=== PATIENT | male | born 1955 | race African-American/Black ===

== ENCOUNTER 2017-09-18 09:23 | Observation (INO) | payer OTHER ==
[2017-09-18] MEDS ORDERED: NITROGLYCERIN (SL) 0.4 MG TAB SL ×2 (10:00→14:30)
[2017-09-18 10:18] LABS: ADD MAN DIFF? NO
[2017-09-18 10:23] LABS: WHITE BLOOD COUNT 8.4 10^3/ul (4.8-10.8)
[2017-09-18 10:23] LABS: BASOPHILS % 0.4 % (0.0-2.0); EOSINOPHILS # 0.2 10^3/ul (0.0-0.5); EOSINOPHILS % 2.2 % (0.0-7.0); HEMATOCRIT 47.6 % (42.0-52.0); HEMOGLOBIN 16.3 g/dl (14.0-18.0); IMMATURE GRANS #M 0.02 10^3/ul; IMMATURE GRANS % (M) 0.2 %; LYMPHOCYTES # 2.7 10^3/ul (0.8-2.9); LYMPHOCYTES % 31.8 % (15.0-51.0); MEAN CORPUSCULAR HEMOGLOBIN 31.4 pg (29.0-33.0); MEAN CORPUSCULAR HGB CONC 34.2 g/dl (32.0-37.0); MEAN CORPUSCULAR VOLUME 91.7 fl (82.0-101.0); MEAN PLATELET VOLUME 9.9 fl (7.4-10.4); MONOCYTE # 0.7 10^3/ul (0.3-0.9); MONOCYTES % 8.5 % (0.0-11.0); NEUTROPHIL # 4.8 10^3/ul (1.6-7.5); NEUTROPHILS % 56.9 % (39.0-77.0); PLATELET COUNT 300 10^3/UL (140-415); RED BLOOD COUNT 5.19 10^6/ul (4.70-6.10); RED CELL DISTRIBUTION WIDTH 13.2 % (11.5-14.5)
[2017-09-18] MEDS: NITROGLYCERIN 2% 1 GM OINT PKT TD (10:32)
[2017-09-18 10:44] LABS: ALANINE AMINOTRANSFERASE 36 IU/L (13-69); ALBUMIN 4.1 g/dl (3.3-4.9); ALKALINE PHOSPHATASE 86 IU/L (42-121); ASPARTATE AMINO TRANSFERASE 30 IU/L (15-46); BILIRUBIN,INDIRECT 0.6 mg/dl (0-1.1); BILIRUBIN,TOTAL 0.6 mg/dl (0.2-1.3); LIPASE 189 U/L (23-300); TOTAL PROTEIN 7.3 g/dl (6.1-8.1)
[2017-09-18 10:45] LABS: ANION GAP 12 (8-16); BLOOD UREA NITROGEN 11 mg/dl (7-20); CALCIUM 9.7 mg/dl (8.4-10.2); CARBON DIOXIDE 27 mmol/L (21-31); CHLORIDE 102 mmol/L (97-110); CREATININE 1.25 mg/dl (0.61-1.24); GLUCOSE 265 mg/dl (70-220); POTASSIUM 3.8 mmol/L (3.5-5.1); SODIUM 137 mmol/L (135-144)
[2017-09-18 10:55] LABS: TROPONIN-I < 0.010 ng/ml (0.000-0.120)
[2017-09-18] MEDS: morphine 4 MG/ML VIAL IV (12:04)
[2017-09-18] MEDS ORDERED: ACETAMINOPHEN 325 MG TAB PO (13:00)
[2017-09-18] MEDS ORDERED: ONDANSETRON 4 MG INJ IV ×2 (13:00→14:30)
[2017-09-18] MEDS ORDERED: NACL 0.9% 3 ML SYG IV (14:30)
[2017-09-18] MEDS ORDERED: DOCUSATE SODIUM 100 MG CAP PO (14:30)
[2017-09-18] MEDS ORDERED: GLUCOSE GEL 15 GRAM TUBE BUCCAL (15:00)
[2017-09-18] MEDS ORDERED: GLUCAGON 1 MG INJ IM (15:00)
[2017-09-18] MEDS ORDERED: DEXTROSE 50% 50 ML SYRINGE IV ×2 (15:00)
[2017-09-18] MEDS ORDERED: GLUCOSE GEL 15 GRAM TUBE PO ×2 (15:00)
[2017-09-18 15:53] LABS: HEMOGLOBIN A1C 10.3 % (0-5.9)
[2017-09-18 16:13] LABS: CREATINE KINASE 333 IU/L (23-200)
[2017-09-18 16:27] LABS: CK INDEX 0.6; CK-MB 1.86 ng/ml (0.0-2.4); TROPONIN-I < 0.010 ng/ml (0.000-0.120)
[2017-09-18] MEDS: ACETAMINOPHEN 325 MG TAB PO (17:01)
[2017-09-18 17:09] LABS: CHOL/HDL RATIO 7.4 RATIO; HDL CHOLESTEROL 31 mg/dl (30-78); LDL CHOLESTEROL,CALCULATED 128 mg/dl; TRIGLYCERIDES 364 mg/dl (0-149)
[2017-09-18 17:09] LABS: CHOLESTEROL 232 mg/dl (100-200)
[2017-09-18] MEDS: INSULIN ASPART [NOVOLOG] 3 ML PEN SC ×3 (17:47→20:59)
[2017-09-18] MEDS: FAMOTIDINE 20 MG TAB PO (20:56)
[2017-09-18] MEDS: PREGABALIN 50 MG CAP PO (20:57)
[2017-09-18] MEDS: METOPROLOL 25 MG TAB PO (20:57)
[2017-09-18] MEDS: INSULIN GLARGINE [LANTus] (100 UNITS/ML) SYG SC (21:00)
[2017-09-18] MEDS: morphine 2 MG INJ IV (21:52)
[2017-09-18 23:46] LABS: CREATINE KINASE 300 IU/L (23-200)
[2017-09-19] LABS: CK INDEX 0.6; CK-MB 1.91 ng/ml (0.0-2.4); TROPONIN-I < 0.010 ng/ml (0.000-0.120)
[2017-09-19] MEDS: ACETAMINOPHEN 325 MG TAB PO ×2 (00:54→07:45)
[2017-09-19] MEDS: ACCU-CHEK XX (02:00)
[2017-09-19] MEDS: morphine 2 MG INJ IV ×3 (04:01→13:55)
[2017-09-19 05:48] LABS: ADD MAN DIFF? NO
[2017-09-19 05:55] LABS: BASOPHILS % 0.5 % (0.0-2.0); EOSINOPHILS # 0.2 10^3/ul (0.0-0.5); EOSINOPHILS % 2.1 % (0.0-7.0); HEMATOCRIT 49.8 % (42.0-52.0); HEMOGLOBIN 16.5 g/dl (14.0-18.0); IMMATURE GRANS #M 0.03 10^3/ul; IMMATURE GRANS % (M) 0.3 %; LYMPHOCYTES # 2.6 10^3/ul (0.8-2.9); LYMPHOCYTES % 30.1 % (15.0-51.0); MEAN CORPUSCULAR HEMOGLOBIN 30.4 pg (29.0-33.0); MEAN CORPUSCULAR HGB CONC 33.1 g/dl (32.0-37.0); MEAN CORPUSCULAR VOLUME 91.7 fl (82.0-101.0); MEAN PLATELET VOLUME 10.2 fl (7.4-10.4); MONOCYTE # 0.7 10^3/ul (0.3-0.9); NEUTROPHIL # 5.2 10^3/ul (1.6-7.5); PLATELET COUNT 300 10^3/UL (140-415); RED BLOOD COUNT 5.43 10^6/ul (4.70-6.10); RED CELL DISTRIBUTION WIDTH 13.5 % (11.5-14.5)
[2017-09-19 05:55] LABS: WHITE BLOOD COUNT 8.8 10^3/ul (4.8-10.8)
[2017-09-19 06:28] LABS: ALANINE AMINOTRANSFERASE 36 IU/L (13-69); ALBUMIN 3.9 g/dl (3.3-4.9); ALBUMIN/GLOBULIN RATIO 1.08; ALKALINE PHOSPHATASE 80 IU/L (42-121); ANION GAP 15 (8-16); ASPARTATE AMINO TRANSFERASE 32 IU/L (15-46); BILIRUBIN,INDIRECT 0.7 mg/dl (0-1.1); BILIRUBIN,TOTAL 0.7 mg/dl (0.2-1.3); BLOOD UREA NITROGEN 14 mg/dl (7-20); CALCIUM 9.5 mg/dl (8.4-10.2); CARBON DIOXIDE 28 mmol/L (21-31); CHLORIDE 100 mmol/L (97-110); CREATININE 1.25 mg/dl (0.61-1.24); GLUCOSE 239 mg/dl (70-220); PHOSPHORUS 3.9 mg/dl (2.5-4.9); POTASSIUM 4.1 mmol/L (3.5-5.1); SODIUM 139 mmol/L (135-144); TOTAL PROTEIN 7.5 g/dl (6.1-8.1)
[2017-09-19] MEDS: INSULIN ASPART [NOVOLOG] 3 ML PEN SC ×4 (07:41→12:21)
[2017-09-19] MEDS: PREGABALIN 50 MG CAP PO ×2 (09:23→12:23)
[2017-09-19] MEDS: METOPROLOL 25 MG TAB PO (09:23)
[2017-09-19] MEDS: FAMOTIDINE 20 MG TAB PO (09:23)
[2017-09-19] MEDS: NICOTINE (21 MG/24 HR) PATCH TRANSDERM (09:23)
== END 2017-09-19 15:16 | disposition home or self-care (01) ==
LOC: E/R 09:23 → MS3 12:59
DX: R07.9 Chest pain, unspecified (principal); I10 Essential (primary) hypertension; R51 Headache; E11.65 Type 2 diabetes mellitus with hyperglycemia; E11.40 Type 2 diabetes mellitus with diabetic neuropathy, unspecified; J45.909 Unspecified asthma, uncomplicated; E78.00 Pure hypercholesterolemia, unspecified; F17.200 Nicotine dependence, unspecified, uncomplicated; F10.10 Alcohol abuse, uncomplicated; Z79.4 Long term (current) use of insulin; Z79.82 Long term (current) use of aspirin; Z88.8 Allergy status to other drugs, medicaments and biological substances; Z82.49 Family history of ischemic heart disease and other diseases of the circulatory system
CPT/HCPCS: 36415; 70450; 71045; 80048; 80053; 80061; 80076; 82550; 82553; 82962; 83036; 83690; 83735; 84100; 84443; 84484; 85025; 93005; 93306; 96374; 99217; 99285-25